=== PATIENT | male | born 1960 | race Caucasian/White ===

== ENCOUNTER 2018-04-22 18:58 | Emergency (ER) | payer OTHER ==
[2018-04-22 19:12] VITALS: BP 164/106; PULSE 88; TEMP 99; BMI 29.9
--- NOTE | 2018-04-22 19:17 | PDOC ---
Rapid Medical Evaluation Time Seen by Provider: 04/22/18 19:11 Medical Evaluation: 04/22/18 19:11 I have performed a brief in-person evaluation of this patient. The patient presents with a chief complaint of: ALLISON w/ cough and nausea and body aches x 4 days. Denies any pmhx Pertinent physical exam findings:well morgan w/ BP 165/106 I have ordered the following:flu The patient will proceed to the ED for further evaluation. Discharge Disposition - Diagnosis Malaise - Referrals - Patient Instructions - Post Discharge Activity
--- NOTE | 2018-04-22 20:58 | PDOC ---
History of Present Illness - General Chief Complaint: Respiratory Stated Complaint: FEVER Time Seen by Provider: 04/22/18 19:11 - History of Present Illness Initial Comments: 04/22/18 20:57 58-year-old male without comorbidities presents for evaluation of fever bodyaches and cough 4 days. No comorbidities. Past History - Past Medical History Allergies/Adverse Reactions: Allergies Allergy/AdvReac Type Severity Reaction Status Date / Time No Known Allergies Allergy Verified 04/22/18 19:12 Home Medications: Ambulatory Orders NK [No Known Home Medication] 04/22/18 COPD: No - Suicide/Smoking/Psychosocial Hx Smoking History: Never smoked Review of Systems - Review of Systems Constitutional: Yes: Fever Respiratory: Yes: Cough Musculoskeletal: Yes: See HPI *Physical Exam - Vital Signs Last Vital Signs Temp Pulse Resp BP Pulse Ox 99.0 F 88 18 164/106 H 100 04/22/18 19:09 04/22/18 19:09 04/22/18 19:09 04/22/18 19:09 04/22/18 19:09 - Physical Exam Comments: 04/22/18 20:58 HEAD: NC/AT EYES: Conjuntiva clear Ears: Canals and TM's normal NOSE: No d/c THROAT: Moist mucous membrances, oral pharanx clear, uvula midline NECK: Supple without adenopathy CARDIAC: S1 S2 LUNGS: CTA Full and Equal breath sounds ABDOMEN: Soft NT ND MS: Full ROM in all joints without edema NEUROLOGIC: No gross sensory or motor deficits, NVID SKIN: Normal color and temperature no lesions or rashes Moderate Sedation - Procedure Monitoring Vital Signs: Procedure Monitoring Vital Signs Temperature 99.0 F 04/22/18 19:09 Pulse Rate 88 04/22/18 19:09 Respiratory Rate 18 04/22/18 19:09 Blood Pressure 164/106 H 04/22/18 19:09 O2 Sat by Pulse Oximetry (%) 100 04/22/18 19:09 *DC/Admit/Observation/Transfer Diagnosis at time of Disposition: Malaise, Upper respiratory infection - Discharge Dispostion Disposition: HOME Condition at time of disposition: Stable Decision to Admit order: No - Referrals Referrals: Clay Olvera [Non Staff, Medical] - - Patient Instructions Printed Discharge Instructions: DI for Viral Upper Respiratory Infection -- Adult Additional Instructions: De Jesus hisopo de la gripe hoy fue negativo. [place] es muy probablemente rachel infeccin viral de las vas respiratorias superiores. Continuar con Tylenol attila se indica. Regrese a la murray de emergencias para empeorar los sntomas y yahaira un seguimiento con el mdico de atencin primaria de 1 a 2 rodriguez para rachel evaluacin adicional y opciones de tratamiento. your flu swab today was negative. This is most likely a viral upper respiratory infection. Continue with Tylenol as directed. Return to the emergency room for worsening symptoms and follow-up with primary care physician one to 2 days for further evaluation and treatment options. - Post Discharge Activity
== END 2018-04-22 21:30 | disposition home or self-care (01) ==
LOC: JERFT 18:58
DX: J06.9 Acute upper respiratory infection, unspecified (principal); R53.81 Other malaise
CPT/HCPCS: 87804; 99281-25

== ENCOUNTER 2021-05-07 22:54 | Observation (INO) | payer OTHER ==
[2021-05-07 23:07] VITALS: BMI 31.1
[2021-05-07] MEDS ORDERED: SODIUM CHLORIDE 0.9% 500 ML INFUS.BAG IV ONE (23:46)
[2021-05-07] MEDS ORDERED: ACETAMINOPHEN 1000 MG/100 ML BAG IVPB ONE (23:46)
[2021-05-07] MEDS ORDERED: ONDANSETRON 4 MG/2 ML VIAL IVPUSH ONE (23:46)
[2021-05-08 00:04] LABS: BASO % 0.2 % (0-2.0); EOS % 0.4 % (0-4.5); HEMATOCRIT 43.6 % (35.4-49); LYMPH % 18.9 % (8-40); MCH 29.4 pg (25.7-33.7); MCHC 34.5 g/dl (32.0-35.9); MEAN CELL VOLUME 85.3 fl (80-96); MEAN PLT VOLUME 10.6 fl (7.5-11.1); MONO % 6.4 % (3.8-10.2); NEUT % 74.1 % (42.8-82.8); PLATELET COUNT 97 10^3/uL (134-434); RDW 12.9 % (11.9-15.9); WHITE BLOOD COUNT 4.8 K/mm3 (4.0-10.0)
[2021-05-08 00:28] LABS: CALCIUM 8.5 mg/dL (8.5-10.1)
[2021-05-08 00:29] LABS: ALBUMIN 3.9 g/dl (3.4-5.0); BLOOD UREA NITROGEN 10.4 mg/dL (7-18)
[2021-05-08 00:34] LABS: BILIRUBIN,TOTAL 0.4 mg/dL (0.2-1); TOT PROT 6.7 g/dl (6.4-8.2)
[2021-05-08] MEDS ORDERED: MECLIZINE HCL 25 MG TABLET (FP) PO ONE (00:51)
[2021-05-08] MEDS ORDERED: ONDANSETRON 4 MG/2 ML VIAL ONE (00:57)
[2021-05-08] MEDS ORDERED: MECLIZINE HCL 25 MG TABLET (FP) ONE (00:57)
[2021-05-08] MEDS ORDERED: ACETAMINOPHEN INJECTION 100 ML IVPB ONE (00:57)
[2021-05-08 08:31] LABS: BASO % 0.3 % (0-2.0); EOS % 0.3 % (0-4.5); HEMATOCRIT 42.1 % (35.4-49); HEMOGLOBIN 14.1 GM/dL (11.7-16.9); LYMPH % 21.3 % (8-40); MCH 28.9 pg (25.7-33.7); MCHC 33.6 g/dl (32.0-35.9); MEAN CELL VOLUME 86.1 fl (80-96); MEAN PLT VOLUME 11.2 fl (7.5-11.1); MONO % 6.5 % (3.8-10.2); NEUT % 71.6 % (42.8-82.8); PLATELET COUNT 100 10^3/uL (134-434); RBC 4.89 M/mm3 (4.00-5.60); RDW 12.8 % (11.9-15.9); WHITE BLOOD COUNT 4.8 K/mm3 (4.0-10.0)
[2021-05-08 08:33] LABS: INR 1.12 (0.83-1.09); PROTHROMBIN TIME (PATIENT) 12.9 SEC (9.7-13.0)
[2021-05-08 08:35] LABS: ACTIVATED PTT 30.7 SECONDS (25.2-36.5)
[2021-05-08 08:51] LABS: ALBUMIN 3.5 g/dl (3.4-5.0); BLOOD UREA NITROGEN 10.4 mg/dL (7-18); CALCIUM 8.6 mg/dL (8.5-10.1)
[2021-05-08 08:52] LABS: MAGNESIUM 2.5 mg/dL (1.8-2.4)
[2021-05-08 08:54] LABS: CREATININE 0.8 mg/dL (0.55-1.3); PHOSPHOROUS 2.8 mg/dL (2.5-4.9)
[2021-05-08 08:55] LABS: BILIRUBIN,TOTAL 0.5 mg/dL (0.2-1)
[2021-05-08 09:23] LABS: URINE APPEARANCE CLEAR; URINE BILIRUBIN NEGATIVE (NEGATIVE); URINE COLOR YELLOW; URINE GLUCOSE (UA) NEGATIVE (NEGATIVE); URINE KETONE NEGATIVE (NEGATIVE); URINE LEUK ESTERASE NEGATIVE (NEGATIVE); URINE NITRITE NEGATIVE (NEGATIVE); URINE PROTEIN NEGATIVE (NEGATIVE); URINE UROBILINOGEN 0.2 mg/dL (0.2-1.0)
[2021-05-08] MEDS: HYDROCHLOROTHIAZIDE 12.5 MG CAPSULE (FP) PO SCH (10:53)
[2021-05-08] MEDS: LISINOPRIL 20 MG TABLET PO SCH (10:53)
[2021-05-08] MEDS: ENOXAPARIN NA (PORCINE) 40 MG/0.4 ML DISP.SYRIN SQ SCH (10:54)
[2021-05-08] MEDS: MECLIZINE HCL 12.5 MG TABLET PO SCH ×2 (11:39→17:18)
[2021-05-08] MEDS ORDERED: ATORVASTATIN CA 40 MG TABLET (FP) PO SCH (22:00)
[2021-05-09] MEDS: MECLIZINE HCL 25 MG TABLET (FP) PO SCH ×3 (00:30→12:50)
[2021-05-09 08:26] LABS: BASO % 0.2 % (0-2.0); EOS % 0.7 % (0-4.5); HEMATOCRIT 46.6 % (35.4-49); HEMOGLOBIN 15.5 GM/dL (11.7-16.9); LYMPH % 23.1 % (8-40); MCHC 33.3 g/dl (32.0-35.9); MEAN CELL VOLUME 87.2 fl (80-96); MEAN PLT VOLUME 11.3 fl (7.5-11.1); MONO % 6.3 % (3.8-10.2); NEUT % 69.7 % (42.8-82.8); PLATELET COUNT 106 10^3/uL (134-434); RBC 5.35 M/mm3 (4.00-5.60); WHITE BLOOD COUNT 5.2 K/mm3 (4.0-10.0)
[2021-05-09 08:49] LABS: ALBUMIN 3.4 g/dl (3.4-5.0)
[2021-05-09 08:53] LABS: TOT PROT 6.4 g/dl (6.4-8.2)
[2021-05-09 08:56] LABS: BILIRUBIN,TOTAL 0.6 mg/dL (0.2-1)
[2021-05-09] MEDS ORDERED: ACETAMINOPHEN 325 MG TABLET (FP) PO PRN (10:29)
[2021-05-09] MEDS ORDERED: LIDOCAINE 5% TOPICAL PATCH TP SCH (10:30)
[2021-05-09 10:33] VITALS: TEMP 98.3
[2021-05-09] MEDS: ENOXAPARIN NA (PORCINE) 40 MG/0.4 ML DISP.SYRIN SQ SCH (10:33)
[2021-05-09] MEDS: LISINOPRIL 20 MG TABLET PO SCH (10:33)
[2021-05-09] MEDS: HYDROCHLOROTHIAZIDE 12.5 MG CAPSULE (FP) PO SCH (10:33)
[2021-05-09 12:53] VITALS: BP 134/67; PULSE 68
[2021-05-09] MEDS ORDERED: LIDOCAINE PATCH REMOVAL MC SCH (22:00)
== END 2021-05-09 16:17 | disposition home or self-care (01) ==
LOC: JER 22:54 → INTOOBSV 05-08 00:58 → JERBED 05-08 00:58 → UNDOADMOB 05-08 00:58 → J6S 05-08 03:47 → JERBED 05-08 03:47 → J6S 05-08 10:12 → JERBED 05-08 10:12
PROVIDERS: ADMIT Internal Medicine; ATTEND Nurse Practitioner Family
PROC: 3E033NZ Introduction of Analgesics, Hypnotics, Sedatives into Peripheral Vein, Percutaneous Approach (ICD-10-PCS; principal; 2021-05-08)
PROC: 3E023GC Introduction of Other Therapeutic Substance into Muscle, Percutaneous Approach (ICD-10-PCS; 2021-05-08)
PROC: 3E033GC Introduction of Other Therapeutic Substance into Peripheral Vein, Percutaneous Approach (ICD-10-PCS; 2021-05-08)
PROC: 3E0337Z Introduction of Electrolytic and Water Balance Substance into Peripheral Vein, Percutaneous Approach (ICD-10-PCS; 2021-05-08)
DX: R42 Dizziness and giddiness (principal); I10 Essential (primary) hypertension; E66.9 Obesity, unspecified; Z68.31 Body mass index [BMI] 31.0-31.9, adult; W18.39XA Other fall on same level, initial encounter; Y93.29 Activity, other involving ice and snow; Y93.89 Activity, other specified; Y92.89 Other specified places as the place of occurrence of the external cause; S09.90XA Unspecified injury of head, initial encounter
CPT/HCPCS: 36415; 70450-TC; 70551-TC; 71045-TC-FY; 72125-TC; 80053; 80061; 81003; 83036; 83735; 84100; 84436; 84443; 84484; 85025; 85610; 85730; 93005; 93010; 93306-TC; 93880-TC; 96372; 96374; 97116-GP; 97162-GP; 99285-25; C9803; G0378; U0003; U0005

== ENCOUNTER 2021-07-11 17:38 | Emergency (ER) | payer OTHER ==
[2021-07-11 18:02] VITALS: BP 114/78; PULSE 99; TEMP 98; BMI 25.0
[2021-07-11] MEDS ORDERED: PANTOPRAZOLE SODIUM 40 MG VIAL IVPB ONE (19:40)
[2021-07-11] MEDS ORDERED: SODIUM CHLORIDE 1,000 ML IV STA (19:40)
[2021-07-11] MEDS ORDERED: FAMOTIDINE 20 MG/50 ML IVPB 50 ML IVPB ONE (19:40)
[2021-07-11] MEDS ORDERED: ONDANSETRON 4 MG/2 ML VIAL IVPUSH ONE (19:40)
[2021-07-11] MEDS ORDERED: MAG HYDROX/AL HYDROX/SIMETH 30 ML UNIT-DOSE CUP PO ONE (19:41)
[2021-07-11] MEDS ORDERED: FAMOTIDINE/PF 20 MG/2 ML VIAL IVPB ONE (20:00)
[2021-07-11] MEDS ORDERED: ONDANSETRON 4 MG/2 ML VIAL ONE (20:04)
[2021-07-11] MEDS ORDERED: MAG HYDROX/AL HYDROX/SIMETH 30 ML UNIT-DOSE CUP ONE (20:04)
[2021-07-11] MEDS ORDERED: PANTOPRAZOLE SODIUM 40 MG/100 ML BAG IVPB ONE (20:04)
[2021-07-11] MEDS ORDERED: FAMOTIDINE 10 MG/ML VIAL IVPB ONE (20:04)
[2021-07-11 20:32] LABS: BASO % 0.1 % (0-2.0); EOS % 0.1 % (0-4.5); HEMATOCRIT 51.3 % (35.4-49); HEMOGLOBIN 17.4 GM/dL (11.7-16.9); MCHC 33.9 g/dl (32.0-35.9); MEAN CELL VOLUME 85.5 fl (80-96); MEAN PLT VOLUME 10.7 fl (7.5-11.1); MONO % 3.9 % (3.8-10.2); NEUT % 85.9 % (42.8-82.8); PLATELET COUNT 144 10^3/uL (134-434); RDW 12.9 % (11.9-15.9); WHITE BLOOD COUNT 9.6 K/mm3 (4.0-10.0)
[2021-07-11 20:47] LABS: ALBUMIN 4.6 g/dl (3.4-5.0)
[2021-07-11 20:48] LABS: MAGNESIUM 2.7 mg/dL (1.8-2.4)
[2021-07-11 20:50] LABS: PHOSPHOROUS 3.6 mg/dL (2.5-4.9)
[2021-07-11 20:52] LABS: BILIRUBIN,TOTAL 0.6 mg/dL (0.2-1); TOT PROT 8.4 g/dl (6.4-8.2)
== END 2021-07-12 | disposition home or self-care (01) ==
LOC: JER 17:38
PROC: 3E033NZ Introduction of Analgesics, Hypnotics, Sedatives into Peripheral Vein, Percutaneous Approach (ICD-10-PCS; principal; 2021-07-11)
PROC: 3E033GC Introduction of Other Therapeutic Substance into Peripheral Vein, Percutaneous Approach (ICD-10-PCS; 2021-07-11)
PROC: 3E033GC Introduction of Other Therapeutic Substance into Peripheral Vein, Percutaneous Approach (ICD-10-PCS; 2021-07-11)
PROC: 3E0337Z Introduction of Electrolytic and Water Balance Substance into Peripheral Vein, Percutaneous Approach (ICD-10-PCS; 2021-07-11)
PROC: 3E033GC Introduction of Other Therapeutic Substance into Peripheral Vein, Percutaneous Approach (ICD-10-PCS; 2021-07-11)
DX: R11.2 Nausea with vomiting, unspecified (principal); K62.89 Other specified diseases of anus and rectum
CPT/HCPCS: 36415; 71250-TC; 74176-TC; 80053; 83690; 83735; 84100; 85025; 93005; 93010; 99285-25